=== PATIENT | female | born 1995 | race African-American/Black ===

== ENCOUNTER 2022-11-06 22:49 | Emergency (ER) | payer MEDICAID ==
[~2022-11-06] VITALS: Ht 175.3 cm; Wt 88.0 kg
[2022-11-07] MEDS ORDERED: KETOROLAC 30MG/ML VIAL IV STA (02:53)
[2022-11-07] MEDS ORDERED: MORPHINE SULFATE 4 MG/ML CPJ (NOT FOR IM USE) IV STA (02:53)
[2022-11-07 04:10] LABS: BASOPHILS % 0.8 % (0.0-2.0); EOSINOPHILS % 1.5 % (0.0-5.0); HEMATOCRIT. 38.6 % (36.0-48.0); HEMOGLOBIN. 12.6 g/dL (12.0-16.0); LYMPHOCYTES % 27.4 % (20.0-50.0); MEAN CORPUSCULAR HEMOGLOBIN 25.9 pg (28.0-32.0); MEAN CORPUSCULAR VOLUME 79.3 fL (81.0-99.0); MEAN PLATELET VOLUME 7.3 fl (7.4-10.4); MONOCYTES % 11.5 % (2.0-8.0); NEUTROPHILS % 58.8 % (40.0-76.0); PLATELET 414 x1000/uL (130-400); RED BLOOD CELL COUNT 4.86 mill/uL (4.2-5.4); RED CELL DISTRIBUTION WIDTH 14.7 % (11.6-14.6)
[2022-11-07 04:18] LABS: CHLORIDE 108 mEq/L (98-107); PROTHROMBIN TIME 10.7 sec (9.6-11.0)
[2022-11-07] MEDS ORDERED: AMPICILLIN SOD/SULBACTAM NA 3 G in SODIUM CHLORIDE 0.9% 100 ML IV SCH (05:45)
[2022-11-07] MEDS ORDERED: AMOX1TAB16 MT (06:22)
[2022-11-07] MEDS ORDERED: ACET-2708 MT (06:22)
[2022-11-07] MEDS ORDERED: IOHEXOL-300 100 ML BOTTLE ONE (06:57)
[2022-11-07 07:38] VITALS: BP 115/67
== END 2022-11-07 08:37 | disposition left against medical advice (07) ==
LOC: ER 22:49
DX: K04.7 Periapical abscess without sinus (principal); F12.10 Cannabis abuse, uncomplicated; Z91.048 Other nonmedicinal substance allergy status
CPT/HCPCS: 36415; 80053; 83615; 85025; 85610; 87040; 96365; 96375; 99284; J0295; J1885; J2270; J7050; Q9967